=== PATIENT | female | born 1975 | race Caucasian/White ===

== ENCOUNTER → 2021-08-06 | Outpatient (CLI) | payer OTHER ==
[~2021-08-06] MED LIST: NITR100C3 PO; SIMV20TA3 PO
[2021-08-06 10:45] VITALS: BP 106/68
--- NOTE | 2021-08-06 11:17 | Cardiology Stress Test Report ---
Stress Test Report Date of Procedure/Referring: Date of Procedure: Aug 06, 2021 PCP Ariane Kellogg MD Admitting Physician Ariane Kellogg MD Indications: CP Baseline Heart Rate: 83 Baseline Blood Pressure: Blood Pressure Systolic: 106 Blood Pressure Diastolic: 68 Baseline EKG: Baseline EKG: NSR Summary/Conclusion: Summary: In summary, the patient started exercising with a baseline heart rate, blood pressure and EKG mentioned above Patient was able to exercise for a total of 5 minutes on Anthony protocol, METs 7 Maximum heart rate 160 Maximum blood pressure 146/63 Stress EKG, Minimal nondiagnostic changes Recovery EKG , Return to baseline Conclusion: 1. Good exercise tolerance for a total of 5 minutes on Anthony protocol, 7 METs, achieving 92 percent of maximum expected heart rate 2. Minimal nondiagnostic EKG changes with exercise returned to baseline during recovery 3. Occasional premature ventricular contractions noted during exercise and early in recovery. SULAIMAN BROWN MD Aug 06, 2021 11:17
== END ==
LOC: CARD 10:06
PROVIDERS: ATTEND Pediatrics
DX: R07.9 Chest pain, unspecified (principal); E78.2 Mixed hyperlipidemia; Z82.49 Family history of ischemic heart disease and other diseases of the circulatory system
CPT/HCPCS: 93017